=== PATIENT | male | born 1980 | race African-American/Black ===

== ENCOUNTER 2018-03-20 21:57 | Emergency (ER) | payer BC ==
[~2018-03-20] VITALS: Ht 170.2 cm; Wt 76.8 kg
[2018-03-20 23:04] LABS: HEMATOCRIT 42.5 % (38.0-50.0); HEMOGLOBIN 14.8 G/DL (12.5-16.6); MCHC 34.8 G/DL (30.0-36.0); MCV 89.1 FL (86-99); PLATELET COUNT 247 K/uL (156-360); RBC DIS.WIDTH-CV 13.6 % (11.8-14.6); RBC DIS.WIDTH-SD 44.6 % (39-53); RED BLOOD COUNT 4.77 M/uL (4.00-5.50); WHITE BLOOD COUNT 11.1 K/uL (4.1-10.2)
[2018-03-20 23:20] LABS: CHLORIDE 108 mEq/L (99-109); POTASSIUM 3.6 mEq/L (3.7-5.4); SODIUM 141 mEq/L (136-147)
[2018-03-20 23:21] LABS: GLUCOSE 121 mg/dL (70-99)
[2018-03-20 23:25] LABS: CREATININE 1.3 mg/dL (0.6-1.3); GFR ESTIMATE (CALCULATED) > 59 mL/min/ (58.99-99999)
[2018-03-20 23:26] LABS: UREA NITROGEN (BUN) 11 mg/dL (9-23)
[2018-03-21] MEDS ORDERED: FLAGYL500 MG PO (00:57)
[2018-03-21] MEDS ORDERED: CIPRO500 MG PO (00:57)
[2018-03-21] MEDS ORDERED: PERCOCET 5/31 TABLET PO (01:25)
[2018-03-21 01:30] VITALS: BP 126/68
== END 2018-03-21 01:37 | disposition home or self-care (01) ==
LOC: RME 21:57 → EME 21:57 → RME 03-21 01:37
PROVIDERS: Physician Assistant
PROC: 0H98XZZ Drainage of Buttock Skin, External Approach (ICD-10-PCS; principal; 2018-03-20)
DX: K61.0 Anal abscess (principal); F17.200 Nicotine dependence, unspecified, uncomplicated; Z87.2 Personal history of diseases of the skin and subcutaneous tissue; Z98.890 Other specified postprocedural states
CPT/HCPCS: 72193; 80048; 85027